=== PATIENT | female | born 1950 | race Two or more races ===

== ENCOUNTER 2025-07-10 16:36 | Emergency (ER) | payer MEDICARE ==
[~2025-07-10] VITALS: Ht 165.1 cm; Wt 76.2 kg
[2025-07-10 16:54] VITALS: TEMP 98.2
[2025-07-10 18:16] VITALS: BP 120/75; O2SAT 98
== END 2025-07-10 18:17 | disposition home or self-care (01) ==
LOC: ER 17:14
DX: M79.661 Pain in right lower leg (principal); J45.909 Unspecified asthma, uncomplicated; Z79.01 Long term (current) use of anticoagulants; Z86.718 Personal history of other venous thrombosis and embolism
CPT/HCPCS: 93971-TC